=== PATIENT | male | born 1950 | race Caucasian/White ===

== ENCOUNTER → 2016-04-11 | Outpatient (CLI) | payer MEDICARE, OTHER ==
[~2016-04-11] MED LIST: ADULT LOW DOSE81 MG PO; AEROSOL THERAPY1 DEV XX; ALBUTEROL-200 PUFFS/ IH; DUONEB 3 MG/3 ML3 ML IH; GABAPENTIN 600600 MG OR; LEVSIN0.125 MG PO; LISINOPRIL/HCTZ1 TA3 PO; LISINOPRIL40 MG; LORTAB 5/3251 TAB PO; MOBIC7.5 MG PO; OMEPRAZOLE20 MG PO; PHENERGAN25 M3 PO; PRAVASTATIN SOD40 MG PO; SIMVASTATIN20 MG PO; SINGULAIR 10 MG10 MG PO; VERELAN OR
--- NOTE | 2016-04-17 15:26 | RADIOLOGY REPORT PS360 ---
HIP RT 2-3 V WITH PELVIS IF PERFOR FEMUR 2 view right femur ORDERING PHYSICIAN : FRANCHESCA FITZGERALD MD PATIENT AGE: 66 years GENDER: Male INDICATION: S/P REPAIR FU with gamma nail ORIF intertrochanteric fracture TECHNIQUE: AP and crosstable lateral view view right hip. Also AP pelvis AP & lateral view right femur included COMPARISON: February 29, 2016: As well as 01/23/2016 right hip ==== RIGHT HIP WITH AP PELVIS......... FINDINGS: Status post gamma nail and long intramedullary myrna insertion stabilizing a healing nondisplaced intertrochanteric fracture. Fracture line is less apparent with increasing healing bone and callus formation most evident along the region of the lesser trochanter. Femoral head and neck satisfactory. Remainder AP pelvis intact-diffuse osseous demineralization but unchanged and satisfactory. Left hip unremarkable. IMPRESSION: Healing right intertrochanteric fracture status post ORIF RIGHT FEMUR 2 VIEWS . Findings the long right intramedullary myrna associated with the right intertrochanteric fracture ORIF, is again seen passing through the length of the femur shaft. It is secured by a transverse screw at the distal right femoral metaphysis. Stable good position of this long intramedullary myrna. The knee joint is not imaged on today's study benign images do include the distal portion of its medullary myrna be stable intratrochanteric fracture again noted on these femur images as well IMPRESSION: Healing right intertrochanteric fracture status post ORIFt
== END ==
LOC: RAD 08:54
DX: S72.001D Fracture of unspecified part of neck of right femur, subsequent encounter for closed fracture with routine healing (principal)